=== PATIENT | male | born 1965 | race American Indian/Alaskan Native ===

== ENCOUNTER 2017-09-16 06:12 | Day surgery (SDC) | payer OTHER ==
[2017-09-16] MEDS ORDERED: NACL BACTERIOSTATIC INFILTRATI ONE (06:53)
--- NOTE | 2017-09-16 07:17 | Anesthesia Day of Surgery ---
Anesthesia Day of Surgery - Day of Surgery Patient Examined: Yes Patient H&P Reviewed: Yes Patient is NPO: Yes
--- NOTE | 2017-09-16 07:17 | Anesthesia Consultation ---
Anesthesia Consult and Med Hx Date of service: 09/16/17 - Airway Anesthetic Teeth Evaluation: Good ROM Head & Neck: Adequate Mental/Hyoid Distance: Adequate Mallampati Class: Class II Intubation Access Assessment: Probably Good - Pulmonary Exam CTA: Yes - Cardiac Exam Cardiac Exam: RRR - Pre-Operative Health Status ASA Pre-Surgery Classification: ASA2 Proposed Anesthetic Plan: General - Pulmonary Hx Smoking: Yes ([employer]) Hx Sleep Apnea: Yes (DX SLEEP APNEA WITH CPAP USE.) - Cardiovascular System Hx Hypertension: Yes (X 4 YRS) - Other Systems Hx Cancer: No
[2017-09-16] MEDS ORDERED: DIPRIVAN 10 MG/ML IV ONE (07:20)
[2017-09-16] MEDS ORDERED: XYLOCAINE MPF 2% ONE (07:21)
[2017-09-16] MEDS ORDERED: PEPCID IV NR (07:30)
[2017-09-16] MEDS ORDERED: NACL 0.9% 1000 ML 1,000 ML IV SCH (07:30)
[2017-09-16] MEDS ORDERED: VERSED IV NR (07:30)
[2017-09-16] MEDS ORDERED: ANCEF/STERILE WATER 2 GM/20 ML 2 GM/20 ML SYRINGE IV ONE (07:56)
[2017-09-16] MEDS ORDERED: ANCEF/STERILE WATER 2 GM/20 ML IV NR (08:02)
[2017-09-16] MEDS ORDERED: ZOFRAN ONE (08:28)
[2017-09-16] MEDS ORDERED: DECADRON ONE (08:28)
[2017-09-16] MEDS ORDERED: DILAUDID ONE (08:32)
[2017-09-16] MEDS ORDERED: OMNIPAQUE 300 MG/50 ML (CATH LAB) IV ONE ×2 (08:33)
[2017-09-16] MEDS ORDERED: WATER FOR IRRIG STERILE IR ONE (08:33)
--- NOTE | 2017-09-16 09:50 | Short Stay Summary ---
Short Stay Documentation Date of service: 09/16/17 - History H&P: obtained from office - Allergies and Medications Current Medications: Allergies No Known Allergies Allergy (Verified 09/15/17 10:09) Home Medications Medication Instructions Recorded Confirmed Last Taken Type AtorvaSTATin [Lipitor] 40 mg PO QHS 09/15/17 09/15/17 09/15/17 History Cefuroxime [Ceftin] 250 mg PO Q12H 09/15/17 09/15/17 09/15/17 History HYDROcodone/APAP 5-325 [[place] 1 each PO Q6HR PRN 09/15/17 09/16/17 2 Days Ago History 5/325] ~09/14/17 Losartan [Cozaar] 25 mg PO QDAY 09/15/17 09/15/17 09/15/17 History Ranitidine HCl [Zantac 150 MG TAB] 150 mg PO BID 09/15/17 09/15/17 09/15/17 History Active Medications Famotidine (Pepcid) 20 mg IV PREOP NR Stop: 09/16/17 10:00 Last Admin: 09/16/17 07:28 Dose: 20 mg Sodium Chloride (Nacl 0.9% 1000 Ml) 1,000 mls @ 100 mls/hr IV DIRECT NADINE Last Admin: 09/16/17 07:25 Dose: 100 mls/hr Midazolam HCl (Versed) 2 mg IV PREOP NR Stop: 09/16/17 10:30 Last Admin: 09/16/17 07:26 Dose: 2 mg - Brief post op/procedure progress note Date of procedure: 09/16/17 Pre-op diagnosis: left hydro stones Post-op diagnosis: other (left hydro stone renal and ureteral steinstrase) Procedure: cysto, rpg, urs, stent, dilations 6x28 stent left laser Anesthesia: GETA Findings: steinstrasse left Surgeon: VIANEY VELIZ Estimated blood loss: minimal Pathology: list (stones) Specimen disposition: to lab Condition: stable - Hospital course Hospital course: orpacuhome - Disposition Condition at discharge: Good Disposition: DC-01 TO HOME OR SELFCARE Short Stay Discharge Plan Activity: advance as tolerated Diet: advance as tolerated Follow up with: VIANEY VELIZ MD [Staff Physician] - 7 Days
[2017-09-16 10:47] VITALS: BP 138/98
--- NOTE | 2017-09-16 10:57 | Fluoroscopy Report ---
FLUOROSCOPY RETROGRADE UROGRAPHY: HISTORY: Left ureteral stone, hydronephrosis. FINDINGS: Fluoroscopy was provided by radiology during retrograde urography by the urologist. 12 fluoroscopic images were captured. The right pyelogram is normal. An approximate 5 mm filling defect in the distal left ureter is identified consistent with a mildly obstructing stone. Subsequent images demonstrate removal of the stone, dilatation of the distal left ureter and placement of a left ureteral stent which adequately drains the left renal collecting system. IMPRESSION: Distal left ureteral stone removal. Left ureteral stent placement.
--- NOTE | 2017-10-05 11:06 | Operative Report ---
PREOPERATIVE DIAGNOSIS: Left ureteral stone, flank pain. POSTOPERATIVE DIAGNOSES: Left ureteral stone, flank pain plus steinstrasse. SURGEON: Abraham Adams M.D. ANESTHESIA: General. ESTIMATED BLOOD LOSS: Minimal. COMPLICATIONS: None. FINDINGS: Steinstrasse stones in left distal ureter. CLINICAL INDICATIONS: Counseled RCBA, antibiotics, SCDs. ____ ESWL, no pain, but with continued hydro, no stones passed, antibiotics, SCDs. DESCRIPTION OF PROCEDURE: The patient was transferred to OR suite in supine position, anesthesia, dorsal lithotomy, prepped and draped in standard fashion. A 22-Maltese scope passed. Pancystoscopy, no tumors, lesions on the preoperative KUB. You could see stones along the Steinstrasse along the distal ureter. Glidewire was passed the left renal pelvis. Balloon dilated the left distal ureter with a 4 cm balloon 15-Maltese for approximately 90 seconds, then deflated. Next, a rigid ureteroscope was passed, stones were visualized, grasped, pulled out intact and dropped in the bladder. Multiple stones were removed. Then, scope passed up to the proximal ureter. No residual stones identified. Scope was withdrawn. Wire was backloaded on the scope. A 6-Maltese double-J stent was passed over the wire under direct and fluoroscopic visualization. When the wire and string was removed, nice proximal J, nice distal J in the bladder, bladder drained. The patient awakened and transferred to PACU in good and stable condition. PLAN: ____ stent removal in the office. JOB# [id number] ATS/NTS
== END 2017-09-16 11:02 | disposition home or self-care (01) ==
LOC: OR 06:12 → EDBD 07:30 → OR 11:02
PROVIDERS: ATTEND Urology
DX: N13.2 Hydronephrosis with renal and ureteral calculous obstruction (principal); I10 Essential (primary) hypertension; K21.9 Gastro-esophageal reflux disease without esophagitis; F17.200 Nicotine dependence, unspecified, uncomplicated; G47.30 Sleep apnea, unspecified; Z99.89 Dependence on other enabling machines and devices
CPT/HCPCS: 36415; 52353; 74420; 74485; 82365; A4217; C1726; C1758; C1769; C2617; J0690; J1100; J1170; J2250; J2405; J2704; J7030; Q9967